=== PATIENT | female | born 1975 ===

== ENCOUNTER 2017-03-11 07:31 | Emergency (ER) | payer MEDICAID ==
[2017-03-11 07:39] VITALS: BMI 29.9
[2017-03-11 07:40] VITALS: BP 145/83; PULSE 88; RESP 20; TEMP 98.3; O2SAT 98
--- NOTE | 2017-03-11 08:06 | ED PDOC ---
Upper Extremity Pain/Injury Time Seen by Provider: 03/11/17 07:50 Chief Complaint (Nursing): Upper Extremity Problem/Injury Chief Complaint (Provider): left elbow pain History Per: Patient History/Exam Limitations: no limitations Onset/Duration Of Symptoms: Persistent (1 week) Current Symptoms Are (Timing): Still Present Quality: "Pain" Additional Complaint(s): 41yo female with no known past medical history, presents to ED with complaints of left elbow pain after she lifted a table, one week ago. She states the pain is localized to her outer elbow area and denies any associated weakness, numbness, shoulder or wrist/hand pain. She also denies any swelling or redness to the area. No other injuries or trauma. Patient has no other medical complaints. Past Medical History Reviewed: Historical Data, Nursing Documentation, Vital Signs Vital Signs: Last Vital Signs Temp 98.3 F 03/11/17 07:38 Pulse 88 03/11/17 07:38 Resp 20 03/11/17 07:38 BP 145/83 03/11/17 07:38 Pulse Ox 98 03/11/17 07:38 - Medical History PMH: Migraine Denies: Chronic Kidney Disease - Surgical History Surgical History: Cholecystectomy - Family History Family History: States: No Known Family Hx - Immunization History Hx Tetanus Toxoid Vaccination: No Hx Influenza Vaccination: No Hx Pneumococcal Vaccination: No - Home Medications Home Medications: Ambulatory Orders Medication Instructions Recorded Ibuprofen [Motrin Tab] 800 mg PO BID PRN 07/30/14 Naproxen [Naprosyn] 500 mg PO BID PRN #14 tablet 03/11/17 - Allergies Allergies/Adverse Reactions: Allergies Allergy/AdvReac Type Severity Reaction Status Date / Time No Known Allergies Allergy Verified 10/23/13 08:38 Review of Systems ROS Statement: Except As Marked, All Systems Reviewed And Found Negative Musculoskeletal: Positive for: Arm Pain (left elbow pain). Negative for: Shoulder Pain, Hand Pain Neurological: Negative for: Weakness, Numbness Physical Exam - Reviewed Nursing Documentation Reviewed: Yes Vital Signs Reviewed: Yes - Physical Exam Appears: Positive for: Non-toxic, No Acute Distress Extremity: Positive for: Normal ROM (Full active range of motion in left upper extremity; no biceps tendon rupture noted.), Tenderness (point tenderness to lateral epicondyle). Negative for: Swelling Neurologic/Psych: Positive for: Alert, Oriented - ECG O2 Sat by Pulse Oximetry: 98 (RA) Pulse Ox Interpretation: Normal Medical Decision Making Medical Decision Making: Impression: Left elbow pain, likely lateral epicondylitis Plan: -- XR Left elbow -- Motrin 600 mg PO Time: 0825 XR reviewed and indicates no acute fractures or dislocation. Patient to be placed in a sling and discharged home with prescription for Naprosyn and instructions for follow up with an orthopedist. Patient aware and agreeable with plan. Scribe Attestation: Documented by Mariola Huff acting as a scribe for Rafi Sears DO. Provider Attestation: All medical record entries made by the Scribe were at my direction and personally dictated by me. I have reviewed the chart and agree that the record accurately reflects my personal performance of the history, physical exam, medical decision making, and the department course for this patient. I have also personally directed, reviewed, and agree with the discharge instructions and disposition. Disposition - Clinical Impression Clinical Impression: Elbow sprain - Patient ED Disposition Is Patient to be Admitted: No Counseled Patient/Family Regarding: Studies Performed, Need For Followup, Rx Given - Disposition Referrals: [facility] [Outside] Jean-Claude Nieto III, MD [Staff Provider] - Disposition: Routine/Home Disposition Time: 08:25 Condition: STABLE Additional Instructions: Return to ER for any worse or new symptoms. See orthopedist in 4-7 days if symptoms persist. Take naprosyn with small food 2x daily as needed for pain. Wear sling for 3 days only. Prescriptions: Naproxen [Naprosyn] 500 mg PO BID PRN #14 tablet PRN Reason: Pain, Moderate (4-7) Instructions: Elbow Sprain (ED) Forms: [facility] (Urdu)
--- NOTE | 2017-03-11 14:44 | RAD ---
PROCEDURE: Radiographs of the left elbow. HISTORY: Left elbow Pain. No history of recent/ related trauma provided COMPARISON: No prior. FINDINGS: BONES: Normal. No fracture. JOINTS: Normal. No osteoarthritis. SOFT TISSUES: Normal. JOINT EFFUSION: None. OTHER FINDINGS: None IMPRESSION: Unremarkable radiographs of the left elbow.
== END 2017-03-11 08:39 | disposition home or self-care (01) ==
LOC: H.ER 07:31
DX: S53.402A Unspecified sprain of left elbow, initial encounter (principal); X50.9XXA Other and unspecified overexertion or strenuous movements or postures, initial encounter; Y92.89 Other specified places as the place of occurrence of the external cause